=== PATIENT | female | born 1960 | race Two or more races ===

== ENCOUNTER 2024-09-27 07:35 | Day surgery (SDC) | payer MEDICAID, SELFPAY ==
--- NOTE | 2024-09-26 09:56 | EKG_ITS ---
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
[2024-09-26 10:12] VITALS: BMI 37.3
[2024-09-26 11:01] LABS: Basophils # (Auto) 0.1 Thou/mm3 (0.0-0.2); Basophils % (Auto) 1 % (0-2.5); Eosinophils # (Auto) 0.2 Thou/mm3 (0.0-0.5); Eosinophils % (Auto) 2 % (0-10); Hemoglobin 12.1 g/dL (12.0-16.0); Immature Granulocytes % (Auto) 0 % (0-0); Immature Granulocytes Auto 0.02 Thou/mm3 (0.00-0.00); Lymphocytes # (Auto) 2.7 Thou/mm3 (1.0-4.8); Lymphocytes % (Auto) 29 % (10-50); Mean Corpuscular HGB Conc 31.8 g/dl (31.0-37.0); Mean Corpuscular Volume 94 fL (80-100); Monocytes # (Auto) 0.5 Thou/mm3 (0.0-0.8); Monocytes % (Auto) 6 % (0-12); Neutrophils # (Auto) 5.9 Thou/mm3 (1.8-7.7); Neutrophils % (Auto) 63 % (37-80); Nucleated Red Blood Cell % 0 /100 WBC (0); Platelet Count 211 Thou/mm3 (140-440); RDW Standard Deviation 49.5 fL (36.4-46.3); Red Blood Count 4.03 Miln/mm3 (4.00-5.20); White Blood Count 9.3 Thou/mm3 (3.6-11.0)
[2024-09-26 11:08] LABS: Partial Thromboplastin Time 26.6 Seconds (22.0-36.0); Prothrombin Time 11.3 Seconds (9.0-12.2)
[2024-09-26 11:30] LABS: Alanine Aminotransferase 16 U/L (10-49); Albumin, Serum 4.7 gm/dL (3.4-4.8); Albumin/Globulin Ratio 1.5 (1.2-2.2); Alkaline Phosphatase 99 U/L (46-116); Anion Gap 10 (7-16); Aspartate Amino Transferase 23 U/L (0-34); BUN/Creatinine Ratio 17 Ratio (12-20); Bilirubin,Total 0.4 mg/dL (0.3-1.2); Blood Urea Nitrogen 12 mg/dL (9-23); Calcium 10.3 mg/dL (8.3-10.6); Calcium (Corrected) 10.3 mg/dL (8.5-10.1); Carbon Dioxide 30.5 mMol/L (20.0-31.0); Chloride 103 mMol/L (98-107); Creatinine (Component) 0.7 mg/dL (0.6-1.3); Estimated Creatinine Clearance 87.1 mL/min (>60); Globulin 3.1 gm/dL (2.3-3.5); Glucose 96 mg/dL (74-106); Osmolality,Calculated 284 (275-295); Potassium 4.1 mMol/L (3.4-5.1); Sodium 143 mMol/L (136-145); Total Protein 7.8 gm/dL (5.7-8.2); eGFR > 60 See Note
[2024-09-27] VITALS (7 sets, daily range): BP systolic 123–149; BP diastolic 64–86; PULSE 77–83; RESP 17–20; TEMP 36.2–36.5; O2SAT 95–100; BMI 37.1
[2024-09-27] MEDS: RINGERS LACTATED 1000 ML 1,000 ML 20 ML IV (08:20)
--- NOTE | 2024-09-27 08:30 | SUR.PREOP ---
Patient expressed gratitude for prayer before their procedure.
--- NOTE | 2024-09-27 11:31 | PD.SUROPNT ---
Date of Procedure 09/27/24 Pre Op Diagnosis 1. Left rotator cuff tear 2. Left shoulder impingement syndrome Post Op Diagnosis Same Procedure 1. Excision lateral end of the clavicle 2. Excision coracoacromial ligament 3. Acromioplasty 4 repair of rotator cuff 5. Manipulation under anesthesia Findings Refer dictation Procedure Description The patient was given general endotracheal anesthesia. Once satisfactory anesthesia was achieved patient was put in about 45?? sitting position with sandbag underneath the left shoulder blade. The part was thoroughly prepped and draped. A skin incision was made at the AC joint extending proximally towards the neck for a half inches and distally towards the arm for about couple of inches. Deeper dissection was carried out. Bleeding vessels were electrocoagulated as and when encountered. The soft tissue was reflected. Following that AC joint was exposed and AC joint was exposed. The deltoid muscle was reflected from the anterior and lateral aspect of the acromial process. There was couple of millimeter osteophyte on the anterior aspect and 1 mm osteophyte on the lateral aspect of the acromial process. The anterior 2 mm osteophyte along with 2 mm of acromion process was excised with the help of saw. On the lateral side altogether 3 mm of acromion process was excised with the help of saw. Following that a periosteal elevator was placed underneath the lateral end of the clavicle and lateral 3-4 mm was excised. The coracoacromial ligament was removed. With the help of curved osteotome the undersurface of the Acromial processes was chiseled out. That made more room between the superior surface of the head of the humerus and undersurface of the acromial process. Following that the rotator cuff was inspected. It revealed an oval tear, however most of the fibers were attached to the greater tuberosity. Wound was irrigated with antibiotic solution every 4-5 minutes. The left shoulder was manipulated at this time. The rotator cuff tear was repaired with 2-0 Vicryl. 2 drill holes were made on the acromial process and deltoid muscle was stitched back to it. Some reinforcement sutures were placed. The subcutaneous tissue was then closed with the help of 2-0 Vicryl and 3-0 Vicryl in layers. The skin was closed with reina. After cleaning the wound with hydrogel proximal solution and sterile dressing was applied. Patient was taken to the recovery room in good condition. Estimated blood loss 10 mL. Prognosis in this case is good. Anesthesia GETA and other Pathology / specimen None Estimated Blood Loss 10 Surgeon Shiva Owens MD Surgical Staff Operation Date: 09/27/24 11:45 Case Staff Anesthesiologist: Ishaan Martinez RN First Assistant: Neelam Key
--- NOTE | 2024-09-27 11:35 | SUR.PHASEI ---
1135: Pt. AAOx4, vitals stable, breathing unlabored, no complaint of pain or nausea, dressing to left shoulder CDI, no active bleed noted, pt. able to wiggle bilateral hands, bilateral cap refill to hands less than 3 seconds, bilateral radial pulses strong and regular, report received from Nika CASTILLO, Valerie BERNAL, and Joan CASTILLO.
--- NOTE | 2024-09-27 12:12 | ESHP_ITS ---
RE: LUCY PETERSEN : 1960 DATE OF ADMISSION: 09/27/2024 HISTORY OF PRESENT ILLNESS: The patient was seen by me in my office on 09/26/2024 for detailed preop history and physical examination. The patient presents to me with history of pain in the left shoulder. Pain radiates toward the neck as well as towards the arm. The patient is unable to sleep. Range of motion severely restricted. The patient's graded intensity of the pain to be 8-9/10. The pain is going on for a long period of time, but the last 3-4 months have been extremely painful. Conservative treatment did not help her. PAST MEDICAL HISTORY: The patient has a history of diabetes mellitus and high blood pressure. No history of asthma, seizures, chest pain, myocardial infarction, or bleeding disorder. PAST SURGICAL HISTORY: Nil known. DRUG HISTORY: The patient is on, 1. Amlodipine. 2. Atorvastatin. 3. Hydrochlorothiazide. 4. Loratadine. 5. Losartan. 6. Metoprolol. 7. Metformin. ALLERGIES: NIL KNOWN. FAMILY HISTORY AND SOCIAL HISTORY: Noncontributory in this case. PHYSICAL EXAMINATION: GENERAL: Normal built lady. VITAL SIGNS: Pulse is 68 per minute. Blood pressure is 136/84. NECK: Soft, supple. No masses felt. Trachea is centrally placed. CARDIOVASCULAR SYSTEM: First and second hearts are normal. No murmur heard. LUNGS: Bilateral vesicular breath sounds. CHEST: Clear. ABDOMEN: Soft. No masses felt. Bowel sounds present. BREASTS: Not indicated in this case. RECTAL: The patient was advised to see the family physician for rectal examination. EXTREMITIES: Left shoulder examination revealed 2+ tenderness at AC joint. Active range of motion is 0 to 80 degrees of abduction, 0 to 80 degrees of forward flexion. Internal rotation is severely restricted. 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 ASSESSMENT AND PLAN: Since the patient is symptomatic, therefore, left rotator cuff repair with Lis procedure was discussed and advised. With help of pictures, diagram and shoulder model, it was explained to the patient in detail. Risks with anesthesia were explained and that includes, but not limited to reaction to anesthetic agents, cardiac arrest, rarely it might be fatal. Risk with operation includes infection and if that happens, the patient will need further surgical procedure. Other risks include delayed healing, wound dehiscence, etc. No guarantee is given regarding outcome of the procedure and/or functional outcome. The patient is also cleared for surgical procedure. Surgery is booked for 09/27/2024. Appropriate lab work done. DT: 11:37:35 TT: 12:11:00 Ref: [id number] - TID: [id number]
--- NOTE | 2024-09-27 12:30 | SUR.PHASEII ---
1230: Pt. AAOx4, vitals stable, breathing unlabored, no complaint of pain or nausea, dressing to left shoulder CDI, no active bleed noted, pt. able to wiggle bilateral hands, bilateral cap refill to hands less than 3 seconds, bilateral radial pulses strong and regular, pt. tolerated sips of water well, pt. ambulated to wheelchair with steady gait and no assist, no complications. Gave discharge instructions to the pt. and her ride using immunologist, both verbalized understanding and had no further questions. Pt. left with all personal belongings.
== END 2024-09-27 12:30 | disposition home or self-care (01) ==
PROVIDERS: Anesthesiology; PCP Nurse Practitioner Family; Referring Provider Orthopaedic Surgery; Visit Provider Orthopaedic Surgery
PROC: (CPT 23412; principal; 2024-09-27 11:30)
DX: M75.102 Unspecified rotator cuff tear or rupture of left shoulder, not specified as traumatic (principal); M75.42 Impingement syndrome of left shoulder; E11.9 Type 2 diabetes mellitus without complications; Z01.810 Encounter for preprocedural cardiovascular examination
CPT/HCPCS: 23412; 36415; 80053; 85025; 85610; 85730; 93005; A4217; A4649; J0690; J1100; J1580; J1885; J2250; J2405; J2704; J2795; J3010; J3490; J7040; J7120